=== PATIENT | male | born 1950 | race Caucasian/White ===

== ENCOUNTER → 2018-02-04 | Outpatient (CLI) | payer OTHER, MEDICARE | LOC: MRI 12:09 | DX: M46.86 Other specified inflammatory spondylopathies, lumbar region (principal); M48.061 Spinal stenosis, lumbar region without neurogenic claudication; M25.78 Osteophyte, vertebrae ==

== ENCOUNTER → 2019-04-14 | Outpatient (CLI) | payer OTHER, MEDICARE | LOC: MRI 11-04 13:51 | DX: S34.105A Unspecified injury to L5 level of lumbar spinal cord, initial encounter (principal); S34.139A Unspecified injury to sacral spinal cord, initial encounter; M48.061 Spinal stenosis, lumbar region without neurogenic claudication; M51.36 Other intervertebral disc degeneration, lumbar region; X58.XXXA Exposure to other specified factors, initial encounter; Y93.89 Activity, other specified; Y92.89 Other specified places as the place of occurrence of the external cause; Y99.8 Other external cause status ==